=== PATIENT | male | born 1950 | race Caucasian/White ===

== ENCOUNTER 2017-09-07 11:38 | Inpatient (IN) | payer MEDICARE, OTHER ==
[~2017-09-07] VITALS: Ht 172.7 cm; Wt 70.0 kg
[2017-09-07] MEDS ORDERED: normal saline 1000ML IV soln IVB ONE (12:10)
[2017-09-07 12:26] LABS: CLARITY,URINE CLEAR (Clear); COLOR,URINE AMBER (Yellow); GLUCOSE, URINE 100 mg/dl (Neg); KETONES,URINE 15 mg/dl (Neg); LEUKOCYTE ESTERASE ,URINE TRACE (Neg); NITRITES, URINE NEGATIVE (Neg); OCCULT BLOOD,URINE TRACE-INTACT (Neg); PROTEIN,URINE TRACE mg/dl (Neg)
[2017-09-07 12:28] LABS: BASOPHILS % (AUTO) 0.6 % (0-1); EOSINOPHILS % (AUTO) 0.5 % (0-6); HEMATOCRIT 38.3 % (42.0-52.0); HEMOGLOBIN 13.3 g/dl (14.0-17.9); LYMPHOCYTES # (AUTO) 1.6 X10'3 (1.1-4.8); LYMPHOCYTES % (AUTO) 20.5 % (21-51); MEAN CORPUSCULAR HEMOGLOBIN 35.8 PG (27.0-31.0); MEAN CORPUSCULAR HGB CONC 34.7 % (33.0-36.5); MEAN PLATELET VOLUME 8.7 FL (7.4-10.4); MONOCYTES # (AUTO) 1.1 X10'3 (0-0.9); MONOCYTES % (AUTO) 15.1 % (2-12); NEUTROPHILS # (AUTO) 4.8 X10'3 (1.8-7.7); NEUTROPHILS % (AUTO) 63.3 % (42-75); PLATELET COUNT 154 X10'3 (140-440); RED BLOOD COUNT 3.72 X10'6 (4.70-6.10); WHITE BLOOD COUNT 7.6 X10'3 (4.5-11.0)
[2017-09-07 12:37] LABS: UA COLLECTION TYPE CLN CATCH MIDSTREAM
[2017-09-07 12:39] LABS: BACTERIA,URINE NONE SEEN /HPF (Neg); COARSE GRANULAR CAST 0-3 /LPF (NEGATIVE); MUCUS STRANDS MODERATE /LPF (Neg); RBC,URINE 0-2 /HPF (0-2); SQUAMOUS EPITHELIAL CELL,UR FEW /LPF (FEW); WBC,URINE 0-4 /HPF (0-4)
[2017-09-07 12:57] LABS: PLATELET ESTIMATE NORMAL
[2017-09-07 12:59] LABS: ANISOCYTOSIS 3+; POLYCHROMASIA 1+; TARGET CELLS 2+
[2017-09-07 13:01] LABS: ALANINE AMINOTRANSFERASE 106 U/L (12-78); ALBUMIN 2.3 G/DL (3.4-5.0); ALBUMIN/GLOBULIN RATIO 0.6 (1.1-1.5); ALKALINE PHOSPHATASE 460 IU/L (46-116); ANION GAP 13 (8-16); ASPARTATE AMINO TRANSFERASE 256 U/L (10-37); BILIRUBIN,TOTAL 5.8 MG/DL (0.1-1.0); BLOOD UREA NITROGEN 8 MG/DL (7-18); BUN/CREATININE RATIO 10.1 (5.4-32.0); CALCIUM 8.3 MG/DL (8.5-10.1); CHLORIDE 103 MMOL/L (99-107); CREATININE 0.79 MG/DL (0.60-1.10); GLUCOSE 94 MG/DL (70-104); LIPASE 218 U/L (73-393); POTASSIUM 3.5 MMOL/L (3.5-5.1); SODIUM 141 MMOL/L (135-145); TOTAL CARBON DIOXIDE 25.5 MMOL/L (24-32); eGFR > 90 ML/MIN
[2017-09-07 14:49] LABS: INR 1.1 INR
[2017-09-07] MEDS ORDERED: NO HOME MEDS (15:15)
[2017-09-07] MEDS ORDERED: LORazepam 1 MG tablet PO ONE (15:20)
[2017-09-07] MEDS ORDERED: dextrose 50%-water 50ml dispensing syringe IV PRN (16:15)
[2017-09-07] MEDS ORDERED: magnesium Cl slow-release 64mg tablet PO PRN (16:15)
[2017-09-07] MEDS ORDERED: magnesium 4gm in 100ml NS 100 ML IV PRN (16:15)
[2017-09-07] MEDS ORDERED: magnesium hydroxide 30ml (MOM) UD suspension PO PRN (16:15)
[2017-09-07] MEDS ORDERED: ondansetron/PF 4mg/2ml inj IV PRN (16:15)
[2017-09-07] MEDS ORDERED: bisacodyl 10mg suppository rectal RC PRN (16:15)
[2017-09-07] MEDS ORDERED: magnesium 2GM in 50ml NS 50 ML IV PRN (16:15)
[2017-09-07] MEDS ORDERED: mag hydrox/Alum hydrox/simeth 30ml oral suspension PO PRN (16:15)
[2017-09-07] MEDS ORDERED: acetaminophen 325mg tablet PO PRN (16:15)
[2017-09-07] MEDS ORDERED: folic acid inj. 2 MG, thiamine inj. 100 MG, MVI, adult No.4 with vit. K 10 ML in dextro... IV SCH ×4 (16:15)
[2017-09-07] MEDS ORDERED: morphine 4 MG/ML inj SYRINge IV PRN ×2 (16:15)
[2017-09-07] MEDS ORDERED: potassium Cl 40MEQ/NS 500ml 500 ML IV PRN ×2 (16:15)
[2017-09-07] MEDS ORDERED: potassium Cl 20 mEq SR tablet PO PRN (16:15)
[2017-09-07] MEDS ORDERED: folic acid inj. 2 MG, MVI, adult No.4 with vit. K 10 ML in dextrose 5% water 500ml 500 ML IV SCH ×3 (16:34)
[2017-09-07 16:45] LABS: MAGNESIUM 1.8 MG/DL (1.5-2.4)
[2017-09-07] MEDS ORDERED: folic acid inj. 2 MG, thiamine inj. 100 MG, MVI, adult No.4 with vit. K 10 ML in dextro... IV ONE ×4 (16:45)
[2017-09-07 17:02] VITALS: BP 128/79
[2017-09-07] MEDS: pantoprazole 40 MG vial IV SCH (17:31)
[2017-09-07 19:00] VITALS: BP 119/78
[2017-09-07] MEDS: docusate sod 100mg capsule PO SCH (19:39)
[2017-09-07] MEDS: LORazepam 1 MG tablet PO PRN (20:51)
[2017-09-08] MEDS: LORazepam 1 MG tablet PO PRN (03:13)
[2017-09-08 05:31] LABS: HEMATOCRIT 33.9 % (42.0-52.0); HEMOGLOBIN 11.7 g/dl (14.0-17.9); MEAN CORPUSCULAR HEMOGLOBIN 35.5 PG (27.0-31.0); MEAN CORPUSCULAR HGB CONC 34.4 % (33.0-36.5); MEAN CORPUSCULAR VOLUME 103.2 FL (78-98); MEAN PLATELET VOLUME 9.1 FL (7.4-10.4); PLATELET COUNT 136 X10'3 (140-440); RED BLOOD COUNT 3.29 X10'6 (4.70-6.10); RED CELL DISTRIBUTION WIDTH 21.5 % (11.5-14.5); WHITE BLOOD COUNT 5.6 X10'3 (4.5-11.0)
[2017-09-08 05:47] LABS: ALANINE AMINOTRANSFERASE 89 U/L (12-78); ALKALINE PHOSPHATASE 402 IU/L (46-116); ANION GAP 8 (8-16); ASPARTATE AMINO TRANSFERASE 208 U/L (10-37); BILIRUBIN,TOTAL 5.5 MG/DL (0.1-1.0); BLOOD UREA NITROGEN 8 MG/DL (7-18); BUN/CREATININE RATIO 9.9 (5.4-32.0); CALCIUM 8.1 MG/DL (8.5-10.1); CHLORIDE 106 MMOL/L (99-107); CREATININE 0.81 MG/DL (0.60-1.10); GLUCOSE 92 MG/DL (70-104); MAGNESIUM 1.8 MG/DL (1.5-2.4); SODIUM 142 MMOL/L (135-145); TOTAL CARBON DIOXIDE 28.2 MMOL/L (24-32); eGFR > 90 ML/MIN
[2017-09-08 05:51] LABS: PHOSPHORUS 2.7 MG/DL (2.3-4.5); POTASSIUM 3.6 MMOL/L (3.5-5.1)
[2017-09-08 05:52] LABS: ALBUMIN/GLOBULIN RATIO 0.6 (1.1-1.5); TOTAL PROTEIN 5.3 G/DL (6.4-8.2)
[2017-09-08 07:18] VITALS: BP 118/69
[2017-09-08 07:24] LABS: ANISOCYTOSIS 3+; PLATELET ESTIMATE DECREASED; POLYCHROMASIA 1+; TARGET CELLS 3+; TOTAL CELLS COUNTED 100
[2017-09-08] MEDS: pantoprazole 40 MG vial IV SCH (07:58)
[2017-09-08] MEDS: nicotine 21mg patch - 24 hr TD SCH (07:58)
[2017-09-08] MEDS: enoxaparin 40mg/0.4ml syringe SUBCUT SCH (07:59)
[2017-09-08] MEDS: K and/or MAG REPLACEMENT MC SCH (08:00)
[2017-09-08] MEDS: docusate sod 100mg capsule PO SCH ×2 (08:00→20:00)
[2017-09-08] MEDS: LORazepam 2 mg/ml vial IV PRN ×2 (08:05→22:38)
[2017-09-08] MEDS: folic acid inj. 2 MG, MVI, adult No.4 with vit. K 10 ML in dextrose 5% water 500ml 500 ML IV SCH ×3 (09:17)
[2017-09-08 18:00] VITALS: BP 95/60
[2017-09-09] VITALS: BP 100/69
[2017-09-09 05:35] LABS: BASOPHILS % (AUTO) 0.4 % (0-1); EOSINOPHILS # (AUTO) 0.1 X10'3 (0-0.9); EOSINOPHILS % (AUTO) 1.8 % (0-6); HEMOGLOBIN 11.5 g/dl (14.0-17.9); LYMPHOCYTES # (AUTO) 1.4 X10'3 (1.1-4.8); LYMPHOCYTES % (AUTO) 24.9 % (21-51); MEAN CORPUSCULAR HEMOGLOBIN 35.9 PG (27.0-31.0); MEAN CORPUSCULAR HGB CONC 34.8 % (33.0-36.5); MEAN CORPUSCULAR VOLUME 102.9 FL (78-98); MEAN PLATELET VOLUME 9.3 FL (7.4-10.4); MONOCYTES % (AUTO) 17.6 % (2-12); NEUTROPHILS % (AUTO) 55.3 % (42-75); PLATELET COUNT 138 X10'3 (140-440); RED BLOOD COUNT 3.21 X10'6 (4.70-6.10); RED CELL DISTRIBUTION WIDTH 21.3 % (11.5-14.5); WHITE BLOOD COUNT 5.5 X10'3 (4.5-11.0)
[2017-09-09 05:42] LABS: ALANINE AMINOTRANSFERASE 79 U/L (12-78); ALBUMIN 1.9 G/DL (3.4-5.0); ALBUMIN/GLOBULIN RATIO 0.6 (1.1-1.5); ALKALINE PHOSPHATASE 361 IU/L (46-116); ANION GAP 9 (8-16); ASPARTATE AMINO TRANSFERASE 156 U/L (10-37); BILIRUBIN,TOTAL 5.6 MG/DL (0.1-1.0); BLOOD UREA NITROGEN 7 MG/DL (7-18); BUN/CREATININE RATIO 9.5 (5.4-32.0); CALCIUM 7.9 MG/DL (8.5-10.1); CHLORIDE 106 MMOL/L (99-107); CREATININE 0.74 MG/DL (0.60-1.10); GLUCOSE 91 MG/DL (70-104); MAGNESIUM 1.9 MG/DL (1.5-2.4); PHOSPHORUS 2.8 MG/DL (2.3-4.5); POTASSIUM 3.3 MMOL/L (3.5-5.1); SODIUM 142 MMOL/L (135-145); TOTAL PROTEIN 5.1 G/DL (6.4-8.2); eGFR > 90 ML/MIN
[2017-09-09 06:59] LABS: GIANT PLATELET FEW; LARGE PLATELETS FEW
[2017-09-09 07:01] LABS: PLATELET ESTIMATE DECREASED
[2017-09-09 07:10] VITALS: BP 126/77
[2017-09-09] MEDS: pantoprazole 40mg Tablet.DR PO SCH (07:33)
[2017-09-09] MEDS: docusate sod 100mg capsule PO SCH ×2 (07:33→20:00)
[2017-09-09] MEDS: nicotine 21mg patch - 24 hr TD SCH (07:33)
[2017-09-09] MEDS: enoxaparin 40mg/0.4ml syringe SUBCUT SCH (07:33)
[2017-09-09] MEDS: LORazepam 1 MG tablet PO PRN ×4 (07:33→21:35)
[2017-09-09] MEDS: K and/or MAG REPLACEMENT MC SCH (08:41)
[2017-09-09] MEDS: folic acid inj. 2 MG, MVI, adult No.4 with vit. K 10 ML in dextrose 5% water 500ml 500 ML IV SCH ×3 (08:57)
[2017-09-09] MEDS: potassium Cl 20 mEq SR tablet PO PRN ×3 (08:57→17:45)
[2017-09-09 12:39] VITALS: BP_SYST 85; BP_SYST 95; BP_DIAS 56
[2017-09-09] MEDS: thiamine 100mg tablet PO SCH (17:45)
[2017-09-09 20:00] VITALS: BP 115/74
[2017-09-10] VITALS: BP 106/78
[2017-09-10] MEDS: LORazepam 1 MG tablet PO PRN ×2 (00:28→07:46)
[2017-09-10 05:36] LABS: BASOPHILS % (AUTO) 0.4 % (0-1); EOSINOPHILS # (AUTO) 0.1 X10'3 (0-0.9); EOSINOPHILS % (AUTO) 1.6 % (0-6); HEMATOCRIT 37.4 % (42.0-52.0); HEMOGLOBIN 12.7 g/dl (14.0-17.9); LYMPHOCYTES # (AUTO) 1.8 X10'3 (1.1-4.8); LYMPHOCYTES % (AUTO) 25.4 % (21-51); MEAN CORPUSCULAR HEMOGLOBIN 35.8 PG (27.0-31.0); MEAN CORPUSCULAR HGB CONC 33.9 % (33.0-36.5); MEAN CORPUSCULAR VOLUME 105.7 FL (78-98); MEAN PLATELET VOLUME 9.5 FL (7.4-10.4); MONOCYTES # (AUTO) 1.3 X10'3 (0-0.9); MONOCYTES % (AUTO) 17.9 % (2-12); NEUTROPHILS % (AUTO) 54.7 % (42-75); PLATELET COUNT 154 X10'3 (140-440); RED BLOOD COUNT 3.54 X10'6 (4.70-6.10); RED CELL DISTRIBUTION WIDTH 21.1 % (11.5-14.5); WHITE BLOOD COUNT 7.3 X10'3 (4.5-11.0)
[2017-09-10 06:04] LABS: ALANINE AMINOTRANSFERASE 86 U/L (12-78); ALBUMIN 2.1 G/DL (3.4-5.0); ALKALINE PHOSPHATASE 379 IU/L (46-116); ANION GAP 9 (8-16); ASPARTATE AMINO TRANSFERASE 151 U/L (10-37); BILIRUBIN,TOTAL 6.1 MG/DL (0.1-1.0); BLOOD UREA NITROGEN 6 MG/DL (7-18); BUN/CREATININE RATIO 7.7 (5.4-32.0); CALCIUM 8.4 MG/DL (8.5-10.1); CHLORIDE 107 MMOL/L (99-107); CREATININE 0.78 MG/DL (0.60-1.10); GLUCOSE 105 MG/DL (70-104); MAGNESIUM 1.8 MG/DL (1.5-2.4); SODIUM 142 MMOL/L (135-145); TOTAL CARBON DIOXIDE 26.4 MMOL/L (24-32); eGFR > 90 ML/MIN
[2017-09-10 06:06] LABS: ALBUMIN/GLOBULIN RATIO 0.6 (1.1-1.5); PHOSPHORUS 2.8 MG/DL (2.3-4.5); POTASSIUM 3.7 MMOL/L (3.5-5.1); TOTAL PROTEIN 5.7 G/DL (6.4-8.2)
[2017-09-10 07:24] VITALS: BP 120/82
[2017-09-10] MEDS: K and/or MAG REPLACEMENT MC SCH (07:40)
[2017-09-10] MEDS: nicotine 21mg patch - 24 hr TD SCH (07:44)
[2017-09-10] MEDS: thiamine 100mg tablet PO SCH (07:45)
[2017-09-10] MEDS: pantoprazole 40mg Tablet.DR PO SCH (07:45)
[2017-09-10] MEDS: multivitamins, therapeutics tablet PO SCH (07:45)
[2017-09-10] MEDS: folic acid 1mg tablet PO SCH (07:45)
[2017-09-10] MEDS: docusate sod 100mg capsule PO SCH ×2 (07:45→19:42)
[2017-09-10] MEDS: enoxaparin 40mg/0.4ml syringe SUBCUT SCH (07:46)
[2017-09-10 11:48] VITALS: BP 106/69
[2017-09-10] MEDS ORDERED: Protein Shake (high protein) 240ml (8oz) cup PO SCH (18:00)
[2017-09-10 19:20] VITALS: BP 114/75
[2017-09-10 23:50] VITALS: BP 105/69
[2017-09-11 05:19] LABS: BASOPHILS % (AUTO) 0.5 % (0-1); EOSINOPHILS # (AUTO) 0.1 X10'3 (0-0.9); EOSINOPHILS % (AUTO) 1.9 % (0-6); HEMATOCRIT 37.1 % (42.0-52.0); LYMPHOCYTES # (AUTO) 1.7 X10'3 (1.1-4.8); LYMPHOCYTES % (AUTO) 24.4 % (21-51); MEAN CORPUSCULAR HEMOGLOBIN 36.4 PG (27.0-31.0); MEAN CORPUSCULAR HGB CONC 34.9 % (33.0-36.5); MEAN CORPUSCULAR VOLUME 104.3 FL (78-98); MEAN PLATELET VOLUME 9.1 FL (7.4-10.4); MONOCYTES # (AUTO) 1.2 X10'3 (0-0.9); NEUTROPHILS # (AUTO) 3.9 X10'3 (1.8-7.7); NEUTROPHILS % (AUTO) 56.2 % (42-75); PLATELET COUNT 167 X10'3 (140-440); RED BLOOD COUNT 3.56 X10'6 (4.70-6.10); RED CELL DISTRIBUTION WIDTH 20.8 % (11.5-14.5)
[2017-09-11 05:35] LABS: ALANINE AMINOTRANSFERASE 77 U/L (12-78); ALBUMIN 2.1 G/DL (3.4-5.0); ALKALINE PHOSPHATASE 354 IU/L (46-116); ANION GAP 6 (8-16); ASPARTATE AMINO TRANSFERASE 125 U/L (10-37); BLOOD UREA NITROGEN 8 MG/DL (7-18); BUN/CREATININE RATIO 10.3 (5.4-32.0); CALCIUM 8.4 MG/DL (8.5-10.1); CHLORIDE 107 MMOL/L (99-107); CREATININE 0.78 MG/DL (0.60-1.10); GLUCOSE 114 MG/DL (70-104); MAGNESIUM 2.1 MG/DL (1.5-2.4); POTASSIUM 3.6 MMOL/L (3.5-5.1); SODIUM 142 MMOL/L (135-145); eGFR > 90 ML/MIN
[2017-09-11 05:36] LABS: ALBUMIN/GLOBULIN RATIO 0.6 (1.1-1.5); PHOSPHORUS 3.3 MG/DL (2.3-4.5); TOTAL PROTEIN 5.6 G/DL (6.4-8.2)
[2017-09-11 07:00] VITALS: BP 126/75
[2017-09-11] MEDS: pantoprazole 40mg Tablet.DR PO SCH (09:16)
[2017-09-11] MEDS: enoxaparin 40mg/0.4ml syringe SUBCUT SCH (09:16)
[2017-09-11] MEDS: multivitamins, therapeutics tablet PO SCH (09:16)
[2017-09-11] MEDS: thiamine 100mg tablet PO SCH (09:16)
[2017-09-11] MEDS: docusate sod 100mg capsule PO SCH (09:17)
[2017-09-11] MEDS: folic acid 1mg tablet PO SCH (09:17)
[2017-09-11] MEDS: nicotine 21mg patch - 24 hr TD SCH (09:18)
[2017-09-11 11:00] VITALS: BP 90/64
[2017-09-11] MEDS ORDERED: FOLI1TAB16 PO (17:14)
[2017-09-11] MEDS ORDERED: THI100T PO (17:14)
[2017-09-11] MEDS ORDERED: NICO-687 TD (17:14)
[2017-09-11] MEDS ORDERED: PANT40TA4 PO (17:14)
== END 2017-09-11 17:53 | disposition home or self-care (01) | DRG 433 ==
LOC: ER 11:39 → ED HOLD 14:54 → SUR 3N 16:43
PROVIDERS: ADMIT Internal Medicine; ATTEND Internal Medicine
DX: K70.10 Alcoholic hepatitis without ascites (principal); R45.851 Suicidal ideations; C67.9 Malignant neoplasm of bladder, unspecified; F10.239 Alcohol dependence with withdrawal, unspecified; K76.0 Fatty (change of) liver, not elsewhere classified; F32.9 Major depressive disorder, single episode, unspecified; E87.6 Hypokalemia; F17.210 Nicotine dependence, cigarettes, uncomplicated; Z88.5 Allergy status to narcotic agent; Z92.21 Personal history of antineoplastic chemotherapy; Z71.6 Tobacco abuse counseling
CPT/HCPCS: 36415; 74176; 74181; 76700; 80053; 81001; 82948; 83690; 83735; 84100; 85025; 85610; 87070; 87088; 96360; 96361; 97110; 97116; 97162; 97530; 99285; C9113; J1650; J2060; J3411; J3490; J7030; J7060

== ENCOUNTER 2017-09-11 17:00 | Inpatient (IN) | payer MEDICARE, OTHER ==
[~2017-09-11] VITALS: Ht 172.7 cm; Wt 65.1 kg
[~2017-09-11 17:00] MED LIST: NO HOME MEDS
[2017-09-11] MEDS ORDERED: NICO-687 TD (17:14)
[2017-09-11] MEDS ORDERED: FOLI1TAB16 PO (17:14)
[2017-09-11] MEDS ORDERED: THI100T PO (17:14)
[2017-09-11] MEDS ORDERED: PANT40TA4 PO (17:14)
[2017-09-11] MEDS ORDERED: magnesium hydroxide 30ml (MOM) UD suspension PO PRN (17:55)
[2017-09-11] MEDS ORDERED: mag hydrox/Alum hydrox/simeth 30ml oral suspension PO PRN (17:55)
[2017-09-11 18:24] VITALS: BP 108/73
[2017-09-11 19:00] VITALS: BP 108/73
[2017-09-11] MEDS: LORazepam 1 MG tablet PO PRN (19:28)
[2017-09-11] MEDS: thiamine 100mg tablet PO SCH (19:28)
[2017-09-11] MEDS: traZODone 50mg tablet PO SCH (21:04)
[2017-09-11 22:11] VITALS: BP 95/62
[2017-09-12] VITALS (7 sets, daily range): BP systolic 80–110; BP diastolic 52–65
[2017-09-12] MEDS: thiamine 100mg tablet PO SCH ×2 (07:38→20:22)
[2017-09-12] MEDS: folic acid 1mg tablet PO SCH (07:38)
[2017-09-12] MEDS: nicotine 21mg patch - 24 hr TD SCH (10:27)
[2017-09-12] MEDS: traZODone 50mg tablet PO SCH (20:22)
[2017-09-13 08:00] VITALS: BP 94/58
[2017-09-13] MEDS: nicotine 21mg patch - 24 hr TD SCH (08:00)
[2017-09-13] MEDS: folic acid 1mg tablet PO SCH (08:07)
[2017-09-13] MEDS: thiamine 100mg tablet PO SCH ×2 (08:07→20:33)
[2017-09-13] MEDS: venlafaxine XR 37.5mg cap (Q24H) PO SCH (08:30)
[2017-09-13 09:44] LABS: BASOPHILS % (AUTO) 0.5 % (0-1); EOSINOPHILS # (AUTO) 0.1 X10'3 (0-0.9); HEMATOCRIT 36.8 % (42.0-52.0); HEMOGLOBIN 12.7 g/dl (14.0-17.9); LYMPHOCYTES # (AUTO) 1.5 X10'3 (1.1-4.8); LYMPHOCYTES % (AUTO) 22.9 % (21-51); MEAN CORPUSCULAR HGB CONC 34.5 % (33.0-36.5); MEAN CORPUSCULAR VOLUME 104.6 FL (78-98); MEAN PLATELET VOLUME 9.2 FL (7.4-10.4); MONOCYTES # (AUTO) 1.3 X10'3 (0-0.9); MONOCYTES % (AUTO) 19.3 % (2-12); NEUTROPHILS # (AUTO) 3.7 X10'3 (1.8-7.7); NEUTROPHILS % (AUTO) 56.3 % (42-75); PLATELET COUNT 205 X10'3 (140-440); RED BLOOD COUNT 3.52 X10'6 (4.70-6.10); RED CELL DISTRIBUTION WIDTH 20.3 % (11.5-14.5); WHITE BLOOD COUNT 6.6 X10'3 (4.5-11.0)
[2017-09-13 09:55] LABS: ALANINE AMINOTRANSFERASE 56 U/L (12-78); ALBUMIN 2.1 G/DL (3.4-5.0); ALKALINE PHOSPHATASE 323 IU/L (46-116); ANION GAP 8 (8-16); ASPARTATE AMINO TRANSFERASE 105 U/L (10-37); BILIRUBIN,TOTAL 5.4 MG/DL (0.1-1.0); BLOOD UREA NITROGEN 17 MG/DL (7-18); BUN/CREATININE RATIO 19.5 (5.4-32.0); CALCIUM 8.3 MG/DL (8.5-10.1); CHLORIDE 104 MMOL/L (99-107); CREATININE 0.87 MG/DL (0.60-1.10); GLUCOSE 164 MG/DL (70-104); POTASSIUM 3.3 MMOL/L (3.5-5.1); SODIUM 140 MMOL/L (135-145); TOTAL CARBON DIOXIDE 28.5 MMOL/L (24-32); eGFR 88 ML/MIN
[2017-09-13 09:56] LABS: ALBUMIN/GLOBULIN RATIO 0.6 (1.1-1.5); TOTAL PROTEIN 5.9 G/DL (6.4-8.2)
[2017-09-13 09:59] LABS: ANISOCYTOSIS 2+; LARGE PLATELETS MODERATE; PLATELET ESTIMATE NORMAL; POLYCHROMASIA FEW; TARGET CELLS 2+
[2017-09-13 19:11] VITALS: BP 116/77
[2017-09-13] MEDS: traZODone 50mg tablet PO SCH (20:33)
[2017-09-14] MEDS: folic acid 1mg tablet PO SCH (07:49)
[2017-09-14] MEDS: thiamine 100mg tablet PO SCH ×2 (07:49→20:33)
[2017-09-14] MEDS: nicotine 21mg patch - 24 hr TD SCH (07:49)
[2017-09-14] MEDS: venlafaxine XR 37.5mg cap (Q24H) PO SCH (07:49)
[2017-09-14 08:00] VITALS: BP 101/66
[2017-09-14] MEDS: multivitamins, therapeutics tablet PO SCH (12:40)
[2017-09-14] MEDS: LORazepam 1 MG tablet PO PRN (19:02)
[2017-09-14 19:50] VITALS: BP 139/87
[2017-09-14] MEDS: traZODone 50mg tablet PO SCH (20:33)
[2017-09-15] MEDS: nicotine 21mg patch - 24 hr TD SCH (07:04)
[2017-09-15] MEDS: multivitamins, therapeutics tablet PO SCH (07:48)
[2017-09-15] MEDS: thiamine 100mg tablet PO SCH ×2 (07:48→20:35)
[2017-09-15] MEDS: folic acid 1mg tablet PO SCH (07:48)
[2017-09-15] MEDS: venlafaxine XR 37.5mg cap (Q24H) PO SCH (07:49)
[2017-09-15 08:00] VITALS: BP 105/70
[2017-09-15 19:04] VITALS: BP 108/73
[2017-09-15] MEDS: traZODone 50mg tablet PO SCH (20:35)
[2017-09-16 08:00] VITALS: BP 118/73
[2017-09-16] MEDS: thiamine 100mg tablet PO SCH ×2 (08:04→20:52)
[2017-09-16] MEDS: multivitamins, therapeutics tablet PO SCH (08:04)
[2017-09-16] MEDS: folic acid 1mg tablet PO SCH (08:04)
[2017-09-16] MEDS: venlafaxine XR 37.5mg cap (Q24H) PO SCH (08:04)
[2017-09-16] MEDS: nicotine 21mg patch - 24 hr TD SCH (08:04)
[2017-09-16 08:38] LABS: BASOPHILS % (AUTO) 0.1 % (0-1); EOSINOPHILS # (AUTO) 0.1 X10'3 (0-0.9); EOSINOPHILS % (AUTO) 1.2 % (0-6); HEMOGLOBIN 12.9 g/dl (14.0-17.9); LYMPHOCYTES # (AUTO) 1.6 X10'3 (1.1-4.8); LYMPHOCYTES % (AUTO) 18.8 % (21-51); MEAN CORPUSCULAR HEMOGLOBIN 36.9 PG (27.0-31.0); MEAN CORPUSCULAR HGB CONC 34.9 % (33.0-36.5); MEAN CORPUSCULAR VOLUME 105.7 FL (78-98); MEAN PLATELET VOLUME 8.5 FL (7.4-10.4); MONOCYTES # (AUTO) 1.5 X10'3 (0-0.9); MONOCYTES % (AUTO) 17.7 % (2-12); NEUTROPHILS # (AUTO) 5.2 X10'3 (1.8-7.7); NEUTROPHILS % (AUTO) 62.2 % (42-75); PLATELET COUNT 285 X10'3 (140-440); RED CELL DISTRIBUTION WIDTH 18.1 % (11.5-14.5); WHITE BLOOD COUNT 8.3 X10'3 (4.5-11.0)
[2017-09-16 08:54] LABS: ALANINE AMINOTRANSFERASE 69 U/L (12-78); ALBUMIN 2.2 G/DL (3.4-5.0); ALBUMIN/GLOBULIN RATIO 0.5 (1.1-1.5); ALKALINE PHOSPHATASE 286 IU/L (46-116); ANION GAP 7 (8-16); ASPARTATE AMINO TRANSFERASE 99 U/L (10-37); BILIRUBIN,TOTAL 4.7 MG/DL (0.1-1.0); BLOOD UREA NITROGEN 13 MG/DL (7-18); BUN/CREATININE RATIO 14.8 (5.4-32.0); CALCIUM 8.6 MG/DL (8.5-10.1); CHLORIDE 104 MMOL/L (99-107); CREATININE 0.88 MG/DL (0.60-1.10); GLUCOSE 137 MG/DL (70-104); POTASSIUM 3.8 MMOL/L (3.5-5.1); SODIUM 139 MMOL/L (135-145); TOTAL CARBON DIOXIDE 28.3 MMOL/L (24-32); TOTAL PROTEIN 6.3 G/DL (6.4-8.2); eGFR 86 ML/MIN
[2017-09-16 19:23] VITALS: BP 109/67
[2017-09-16] MEDS: traZODone 50mg tablet PO SCH (20:52)
[2017-09-17] MEDS: folic acid 1mg tablet PO SCH (07:34)
[2017-09-17] MEDS: thiamine 100mg tablet PO SCH ×2 (07:34→21:07)
[2017-09-17] MEDS: nicotine 21mg patch - 24 hr TD SCH (07:35)
[2017-09-17] MEDS: venlafaxine XR 37.5mg cap (Q24H) PO SCH (07:35)
[2017-09-17] MEDS: multivitamins, therapeutics tablet PO SCH (07:35)
[2017-09-17 08:00] VITALS: BP 97/65
[2017-09-17 19:35] VITALS: BP 105/71
[2017-09-17] MEDS: traZODone 50mg tablet PO SCH (21:07)
[2017-09-18] MEDS: nicotine 21mg patch - 24 hr TD SCH (07:58)
[2017-09-18] MEDS: thiamine 100mg tablet PO SCH ×2 (07:59→21:10)
[2017-09-18] MEDS: folic acid 1mg tablet PO SCH (07:59)
[2017-09-18] MEDS: venlafaxine XR 37.5mg cap (Q24H) PO SCH (07:59)
[2017-09-18] MEDS: multivitamins, therapeutics tablet PO SCH (07:59)
[2017-09-18 08:00] VITALS: BP 114/72
[2017-09-18 20:00] VITALS: BP 100/60
[2017-09-18] MEDS: traZODone 50mg tablet PO SCH (21:09)
[2017-09-19] MEDS: nicotine 21mg patch - 24 hr TD SCH (08:16)
[2017-09-19] MEDS: multivitamins, therapeutics tablet PO SCH (08:18)
[2017-09-19] MEDS: folic acid 1mg tablet PO SCH (08:18)
[2017-09-19] MEDS: venlafaxine XR 37.5mg cap (Q24H) PO SCH (08:18)
[2017-09-19] MEDS: thiamine 100mg tablet PO SCH ×2 (08:18→21:13)
[2017-09-19 08:57] VITALS: BP 117/67
[2017-09-19] MEDS ORDERED: tuberculin, purif. prot. deriv. 5 units/0.1ml ID ONE (11:05)
[2017-09-19 19:28] VITALS: BP 133/87
[2017-09-19] MEDS: traZODone 50mg tablet PO SCH (21:14)
[2017-09-20] MEDS: LORazepam 1 MG tablet PO PRN (01:41)
[2017-09-20 08:00] VITALS: BP 112/60
[2017-09-20] MEDS: folic acid 1mg tablet PO SCH (08:41)
[2017-09-20] MEDS: thiamine 100mg tablet PO SCH ×2 (08:41→20:29)
[2017-09-20] MEDS: multivitamins, therapeutics tablet PO SCH (08:41)
[2017-09-20] MEDS: venlafaxine XR 37.5mg cap (Q24H) PO SCH (08:41)
[2017-09-20] MEDS: nicotine 21mg patch - 24 hr TD SCH (08:42)
[2017-09-20 19:00] VITALS: BP 128/89
[2017-09-20] MEDS: traZODone 50mg tablet PO SCH (20:29)
[2017-09-21] MEDS: venlafaxine XR 37.5mg cap (Q24H) PO SCH (07:41)
[2017-09-21] MEDS: folic acid 1mg tablet PO SCH (07:41)
[2017-09-21] MEDS: thiamine 100mg tablet PO SCH ×2 (07:41→20:06)
[2017-09-21] MEDS: multivitamins, therapeutics tablet PO SCH (07:41)
[2017-09-21] MEDS: nicotine 21mg patch - 24 hr TD SCH (07:42)
[2017-09-21 08:00] VITALS: BP 114/70
[2017-09-21 20:00] VITALS: BP 109/62
[2017-09-21] MEDS: traZODone 50mg tablet PO SCH (20:06)
[2017-09-22 07:14] VITALS: BP 121/74
[2017-09-22] MEDS: folic acid 1mg tablet PO SCH (08:26)
[2017-09-22] MEDS: multivitamins, therapeutics tablet PO SCH (08:26)
[2017-09-22] MEDS: thiamine 100mg tablet PO SCH ×2 (08:26→20:04)
[2017-09-22] MEDS: venlafaxine XR 37.5mg cap (Q24H) PO SCH (08:26)
[2017-09-22] MEDS: nicotine 21mg patch - 24 hr TD SCH (08:27)
[2017-09-22 19:08] VITALS: BP 116/56
[2017-09-22] MEDS: traZODone 50mg tablet PO SCH (20:04)
[2017-09-23] MEDS: multivitamins, therapeutics tablet PO SCH (07:57)
[2017-09-23] MEDS: venlafaxine XR 37.5mg cap (Q24H) PO SCH (07:58)
[2017-09-23] MEDS: folic acid 1mg tablet PO SCH (07:58)
[2017-09-23] MEDS: thiamine 100mg tablet PO SCH ×2 (07:58→20:10)
[2017-09-23] MEDS: nicotine 21mg patch - 24 hr TD SCH (07:58)
[2017-09-23 08:00] VITALS: BP 106/66
[2017-09-23 19:41] VITALS: BP 129/77
[2017-09-23] MEDS: traZODone 50mg tablet PO SCH (20:10)
[2017-09-24 08:00] VITALS: BP 105/74
[2017-09-24] MEDS: multivitamins, therapeutics tablet PO SCH (08:00)
[2017-09-24] MEDS: folic acid 1mg tablet PO SCH (08:00)
[2017-09-24] MEDS: venlafaxine XR 37.5mg cap (Q24H) PO SCH (08:00)
[2017-09-24] MEDS: nicotine 21mg patch - 24 hr TD SCH (08:00)
[2017-09-24] MEDS: thiamine 100mg tablet PO SCH ×2 (08:00→20:31)
[2017-09-24 19:37] VITALS: BP 124/81
[2017-09-24] MEDS: traZODone 50mg tablet PO SCH (20:31)
[2017-09-25 08:17] VITALS: BP 116/79
[2017-09-25] MEDS: folic acid 1mg tablet PO SCH (08:23)
[2017-09-25] MEDS: venlafaxine XR 37.5mg cap (Q24H) PO SCH (08:23)
[2017-09-25] MEDS: nicotine 21mg patch - 24 hr TD SCH (08:24)
[2017-09-25] MEDS: thiamine 100mg tablet PO SCH (08:24)
[2017-09-25] MEDS: multivitamins, therapeutics tablet PO SCH (08:24)
[2017-09-25] MEDS ORDERED: VENL75TA90 PO (08:50)
[2017-09-25] MEDS ORDERED: NICO-687 TD (08:50)
[2017-09-25] MEDS ORDERED: PANT40TA4 PO (08:50)
[2017-09-25] MEDS ORDERED: MULT-1179 PO (08:50)
[2017-09-25] MEDS ORDERED: TRAZ-143 PO (08:50)
[2017-09-25] MEDS: LORazepam 1 MG tablet PO PRN (11:27)
== END 2017-09-25 13:25 | disposition home or self-care (01) | DRG 885 ==
LOC: ADULT MH 17:00
PROVIDERS: ADMIT Psychiatry & Neurology Psychiatry; ATTEND Psychiatry & Neurology Psychiatry
DX: F33.2 Major depressive disorder, recurrent severe without psychotic features (principal); R45.851 Suicidal ideations; F10.19 Alcohol abuse with unspecified alcohol-induced disorder; K70.10 Alcoholic hepatitis without ascites; G60.0 Hereditary motor and sensory neuropathy; D64.9 Anemia, unspecified; R74.0 Nonspecific elevation of levels of transaminase and lactic acid dehydrogenase [LDH]; F41.9 Anxiety disorder, unspecified; F17.210 Nicotine dependence, cigarettes, uncomplicated; Z85.51 Personal history of malignant neoplasm of bladder; Z81.8 Family history of other mental and behavioral disorders
CPT/HCPCS: 36415; 80053; 82948; 85025; 97110; 97116; 97161